=== PATIENT | female | born 2000 | race African-American/Black ===

== ENCOUNTER 2021-09-22 18:42 | Day surgery (SDC) | payer OTHER ==
[2021-09-22 19:03] VITALS: BMI 31.6
[2021-09-22] MEDS ORDERED: hydrALAZINE 20 MG/ML VIAL SLOW IVP PRN (19:43)
== END 2021-09-22 20:50 | disposition home or self-care (01) ==
LOC: CSHLD/OP 18:42
PROVIDERS: ATTEND Family Medicine
DX: O47.1 False labor at or after 37 completed weeks of gestation (principal); O09.33 Supervision of pregnancy with insufficient antenatal care, third trimester; O99.013 Anemia complicating pregnancy, third trimester; D50.9 Iron deficiency anemia, unspecified; Z3A.39 39 weeks gestation of pregnancy
CPT/HCPCS: 99282

== ENCOUNTER 2021-09-27 11:44 | Outpatient (CLI) | payer OTHER ==
[2021-09-27 23:49] LABS: SARS-CoV-2 PCR by NAA Not Detected (NotDetected)
== END 2021-09-27 11:45 | disposition home or self-care (01) ==
LOC: CSHLAB 11:44
PROVIDERS: ATTEND Family Medicine
DX: Z20.822 Contact with and (suspected) exposure to COVID-19 (principal)
CPT/HCPCS: U0003; U0005

== ENCOUNTER 2021-09-30 18:00 | Inpatient (IN) | payer OTHER ==
[~2021-09-30 18:00] MED LIST: Bupivacaine 0.25% HCL 30 ML VIAL ONE
[2021-09-30 19:51] VITALS: BMI 33.6
[2021-09-30] MEDS ORDERED: Promethazine HCl 25 MG/ML VIAL IM PRN (21:10)
[2021-09-30] MEDS ORDERED: hydrALAZINE 20 MG/ML VIAL SLOW IVP PRN (21:10)
[2021-09-30] MEDS ORDERED: Ondansetron PF 4 MG/2 ML Vial IVP PRN (21:10)
[2021-09-30] MEDS ORDERED: Lidocaine 1% (PF) 30 ML VIAL SC PRN (21:10)
[2021-09-30] MEDS ORDERED: Penicillin G Potassium 5 MILL.UNITS in Sodium Chloride 0.9% 100 ML IVPB SCH (21:15)
[2021-09-30] MEDS ORDERED: NS w/ Oxytocin 30 units 500 ML IV SCH (21:15)
[2021-09-30 21:37] LABS: Hemoglobin 10.9 g/dL (12.0-15.5); Mean Corpuscular HGB CONC 32.9 g/dL (32.0-36.0); Mean Corpuscular Hemoglobin 29.7 pg (27.0-33.0); Mean Corpuscular Volume 90.2 fl (81.6-98.3); Mean Platelet Volume 10.3 fl (7.4-10.4); Platelet Count 270 10x3/uL (150-450); RBC Distribution Width 13.3 % (11.5-14.5); Red Blood Cell (RBC) Count 3.67 10x6/uL (3.90-5.03); White Blood Cell (WBC) Count 16.6 10x3/uL (3.5-10.5)
[2021-09-30 22:09] LABS: Hep B Surf Ag Non-Reactive S/CO (NonReactive); Syphilis Antibody Nonreactive (Nonreactive); Syphilis Antibody Index 0.23 S/CO (<1.00 Non-Reactive)
[2021-09-30 22:15] LABS: HBSAg Index 0.21 S/CO (0-0.99)
[2021-10-01] MEDS: Penicillin G 2.5 MILL.units 2.5 MILL.UNITS in Premix Bag 1 BAG IVPB SCH ×5 (01:52→17:25)
[2021-10-01] MEDS ORDERED: Carboprost 250 MCG/ML AMP IM PRN (04:28)
[2021-10-01] MEDS ORDERED: Misoprostol 200 MCG TAB PR PRN (04:28)
[2021-10-01] MEDS ORDERED: Methylergonovine 0.2 MG/ML VIAL IM PRN (04:28)
[2021-10-01] MEDS ORDERED: Fentanyl 2 mcg/Bup 0.1% Cadd 100 ML ONE (13:16)
[2021-10-01] MEDS ORDERED: Acetaminophen 325 MG TAB PO PRN (13:34)
[2021-10-01] MEDS ORDERED: Moisturizing Cream (Eucerin) 113 GM JAR TOP PRN (13:34)
[2021-10-01] MEDS ORDERED: diphenhydrAMINE 50 MG/ML VIAL IVP PRN (13:34)
[2021-10-01] MEDS ORDERED: Lactated Ringer's 500 ML IV PRN (13:34)
[2021-10-01] MEDS ORDERED: Naloxone HCl 0.4 mg/ml Vial IVP PRN ×2 (13:34)
[2021-10-01] MEDS ORDERED: Promethazine HCl 25 MG/ML VIAL IM PRN (13:34)
[2021-10-01] MEDS ORDERED: Ondansetron PF 4 MG/2 ML Vial IVP PRN (13:34)
[2021-10-01] MEDS ORDERED: ePHEDrine Sulfate 50 MG/10 ML VIAL SLOW IVP PRN (13:34)
[2021-10-01] MEDS: Lactated Ringer's 1,000 ML IV SCH (13:41)
[2021-10-01] MEDS ORDERED: Communication Order-Pharmacy FS SCH (13:45)
[2021-10-01] MEDS ORDERED: Fentanyl 2 mcg/Bupivacaine 0.1% Cassette 100 ML EPIDURAL SCH (13:45)
[2021-10-01] MEDS ORDERED: Lidocaine 1% (PF) 30 ML VIAL ONE ×2 (19:37→19:38)
[2021-10-01 20:53] LABS: RapidComm Collect By CNB; pH (Cord, venous) 7.301 (7.250-7.350)
[2021-10-02] MEDS ORDERED: diphenhydrAMINE 25 MG CAP PO PRN (01:26)
[2021-10-02] MEDS ORDERED: hydrALAZINE 20 MG/ML VIAL SLOW IVP PRN (01:26)
[2021-10-02] MEDS ORDERED: Boostrix 0.5 ML (Tdap) VIAL IM ONE (01:26)
[2021-10-02] MEDS ORDERED: Milk Of Magnesia 30 ML UDCUP PO PRN (01:26)
[2021-10-02] MEDS ORDERED: Ondansetron PF 4 MG/2 ML Vial IVP PRN (01:26)
[2021-10-02] MEDS ORDERED: Preparation H Ointment 28 GM TUBE PR PRN (01:26)
[2021-10-02] MEDS ORDERED: Bisacodyl 10 MG SUPP PR PRN (01:26)
[2021-10-02] MEDS ORDERED: Benzocaine-Menthol 82.5 ML CAN TOP PRN (01:26)
[2021-10-02] MEDS ORDERED: Lanolin Ointment 7 GM TUBE TOP PRN (01:26)
[2021-10-02] MEDS ORDERED: Docusate 100 MG CAP PO SCH (01:45)
[2021-10-02] MEDS: Ibuprofen 800 MG TAB PO SCH ×3 (02:35→20:17)
[2021-10-02] MEDS: Lactated Ringer's 1,000 ML IV SCH (07:33)
[2021-10-02] MEDS: Penicillin G 2.5 MILL.units 2.5 MILL.UNITS in Premix Bag 1 BAG IVPB SCH (07:34)
[2021-10-02] MEDS: Prenatal Vitamin 1 TAB PO SCH (08:14)
[2021-10-02] MEDS: Docusate 100 MG CAP PO SCH ×2 (08:14→21:57)
[2021-10-02] MEDS: Ferrous Sulfate 325 MG TAB PO SCH ×2 (08:15→22:18)
[2021-10-03] MEDS: Ibuprofen 800 MG TAB PO SCH ×2 (01:55→02:49)
[2021-10-03 07:57] VITALS: BP 117/61; TEMP 97.7
[2021-10-03] MEDS: Prenatal Vitamin 1 TAB PO SCH (08:46)
[2021-10-03] MEDS: Ferrous Sulfate 325 MG TAB PO SCH (08:46)
[2021-10-03] MEDS: Docusate 100 MG CAP PO SCH (08:47)
== END 2021-10-03 11:10 | disposition home or self-care (01) | DRG 806 ==
LOC: CSHLD 18:40 → CSHPP 10-02 00:05
PROVIDERS: ADMIT Family Medicine; ATTEND Family Medicine
PROC: 10E0XZZ Delivery of Products of Conception, External Approach (ICD-10-PCS; principal; 2021-10-01)
PROC: 10907ZC Drainage of Amniotic Fluid, Therapeutic from Products of Conception, Via Natural or Artificial Opening (ICD-10-PCS; 2021-10-01)
DX: O48.0 Post-term pregnancy (principal); O71.7 Obstetric hematoma of pelvis; Z37.0 Single live birth; Z3A.41 41 weeks gestation of pregnancy; O99.02 Anemia complicating childbirth; O99.824 Streptococcus B carrier state complicating childbirth; D50.9 Iron deficiency anemia, unspecified; O32.8XX0 Maternal care for other malpresentation of fetus, not applicable or unspecified; Z79.899 Other long term (current) drug therapy
CPT/HCPCS: 36415; 51702; 76815; 82805; 85027; 86780; 86850; 86900; 86901; 87340; J2001; J2540; J2590; J3490; J7120; S0020

== ENCOUNTER 2021-10-27 10:19 | Emergency (ER) | payer OTHER ==
[2021-10-27] MEDS ORDERED: Lidocaine 1% (PF) 30 ML VIAL ONE (10:43)
[2021-10-27] MEDS ORDERED: Morphine 4 MG/ML VIAL ONE (11:13)
[2021-10-27] MEDS ORDERED: Ondansetron PF 4 MG/2 ML Vial ONE (11:14)
[2021-10-27] MEDS ORDERED: Ketorolac Tromethamine 30 MG/ML VIAL ONE (11:14)
[2021-10-27] MEDS ORDERED: Clindamycin/D5W 900 MG in Premix Bag 1 BAG IVPB SCH (11:30)
[2021-10-27 11:32] LABS: #Eosinphils 0.2 10x3/uL (0.0-0.5); #Monocytes 0.9 10x3/uL (0.0-1.1); #Neutrophils 12.2 10x3/uL (1.5-8.4); %Basophils 0.2 % (0.0-2.0); %Lymphocytes 13.3 % (18.0-47.0); %Monocytes 5.5 % (0.0-10.0); %Neutrophils 79.7 % (40.0-75.0); Hemoglobin 12.3 g/dL (12.0-15.5); Mean Corpuscular HGB CONC 31.8 g/dL (32.0-36.0); Mean Corpuscular Hemoglobin 28.9 pg (27.0-33.0); Mean Corpuscular Volume 90.8 fl (81.6-98.3); Mean Platelet Volume 9.7 fl (7.4-10.4); Platelet Count 358 10x3/uL (150-450); RBC Distribution Width 12.9 % (11.5-14.5); Red Blood Cell (RBC) Count 4.26 10x6/uL (3.90-5.03); White Blood Cell (WBC) Count 15.3 10x3/uL (3.5-10.5)
[2021-10-27 11:46] LABS: ALT (SGPT) 13 U/L (8-55); AST (SGOT) 18 U/L (5-34); Albumin 4.2 g/dL (3.5-5.0); Alkaline Phosphatase 103 U/L (40-110); Anion Gap 17 mmol/L (10-20); BUN (Urea Nitrogen) 9 mg/dL (7.0-18.7); Bilirubin, Total 0.5 mg/dL (0.2-1.2); Calc. Creatinine Clearance 0 mL/min (70-130); Calcium 9.9 mg/dL (7.8-10.44); Carbon Dioxide 27 mmol/L (22-29); Chloride 101 mmol/L (98-107); Globulin 4.1 g/dL (2.4-3.5); Glucose 84 mg/dL (70-105); Potassium 3.5 mmol/L (3.5-5.1); Protein, Total 8.3 g/dL (6.0-8.3); Sodium 141 mmol/L (136-145)
== END 2021-10-27 12:39 | disposition home or self-care (01) ==
LOC: CSHERS 10:19
DX: N61.1 Abscess of the breast and nipple (principal); D72.829 Elevated white blood cell count, unspecified
CPT/HCPCS: 10060; 36415; 80053; 83605; 85025; 87040; 87070; 87077; 87186; 87205; 96365; 96375; J1885; J2001; J2270; J2405; J3490

== ENCOUNTER 2023-11-03 13:33 | Outpatient (CLI) | payer OTHER | END 2023-11-03 13:34 | disposition home or self-care (01) | LOC: CSHRAD 13:33 | PROVIDERS: ATTEND Nurse Practitioner Women's Health | DX: O09.32 Supervision of pregnancy with insufficient antenatal care, second trimester (principal); Z3A.25 25 weeks gestation of pregnancy | CPT/HCPCS: 76805 ==